=== PATIENT | male | born 1960 | race African-American/Black ===

== ENCOUNTER 2018-12-18 07:43 | Emergency (ER) | payer OTHER ==
--- OUTSIDE RECORDS SUMMARY | 2018-12-18 07:46 | XMS REPORT | Clinical Summary ---
:1960 Author Organization [facility] Address [address] [place] [address] Care Team Providers Name Role Phone Asked, No Pcp Primary Care Provider Unavailable Allergies No Known Allergies Medications Medication Sig Dispensed Refills Start Date End Date Status QUEtiapine XR Take 400 mg by 0 Active (SEROquel XR) 400 MG mouth nightly. 24 hr tablet sertraline (ZOLOFT) Take 100 mg by 0 Active 100 MG tablet mouth daily. amLODIPine (NORVASC) Take 1 tablet 30 tablet 11 09/18/2018 10/18/2018 10 mg tablet (10 mg total) by mouth daily for 30 days. Active Problems Problem Noted Date Acute renal failure 09/12/2018 Encounters Date Type Specialty Care Team Description 09/15/2018 Intake Access N/A 09/12/2018 - Hospital Encounter General Internal Michael Herrmann Acute renal failure, unspecified acute renal failure type (HCC) (Primary Dx); 09/17/2018 Curry Castillo MD Suicidal ideation; Cole Locke, Cocaine abuse (HCC) Ciro Salter MD 09/12/2018 Intake Access N/A after 12/17/2017 Social History Tobacco Use Types Packs/Day Years Used Date Current Every Day Smoker 0.5 Smokeless Tobacco: Never Used Tobacco Cessation: Ready to Quit: No; Counseling Given: Yes Sex Assigned at Date Recorded Not on file Job Start Date Occupation Industry Not on file Not on file Not on file Travel History Travel Start Travel End No recent travel history available. Last Filed Vital Signs Vital Sign Reading Time Taken Blood Pressure 158/84 09/17/2018 3:43 PM CDT Pulse 60 09/17/2018 3:43 PM CDT Temperature 35.9 C (96.7 F) 09/17/2018 3:43 PM CDT Respiratory Rate 18 09/17/2018 3:43 PM CDT Oxygen Saturation 96% 09/17/2018 3:43 PM CDT Inhaled Oxygen Concentration - - Weight 125 kg (275 lb 3.2 oz) 09/17/2018 4:53 AM CDT Height 188 cm (6' 2") 09/12/2018 9:41 PM [employer]LASTICS WORKER Body Mass Index 35.33 09/12/2018 9:41 PM PLASTICS WORKER Plan of Treatment Health Maintenance Due Date Last Done Comments COLONOSCOPY SCREENING 2009 SHINGLES VACCINES (#1) 2009 INFLUENZA VACCINE 02/04/2019 Procedures Procedure Name Priority Date/Time Associated Comments Diagnosis ESTIMATED GFR Routine 09/17/2018 4:40 Results for this AM CDT procedure are in the results section. BASIC METABOLIC PANEL Routine 09/17/2018 4:40 Results for this AM CDT procedure are in the results section. ESTIMATED GFR Routine 09/15/2018 4:54 Results for this AM CDT procedure are in the results section. IONIZED CALCIUM Routine 09/15/2018 4:54 Results for this AM CDT procedure are in the results section. PHOSPHORUS LEVEL Routine 09/15/2018 4:54 Results for this AM CDT procedure are in the results section. MAGNESIUM LEVEL Routine 09/15/2018 4:54 Results for this AM CDT procedure are in the results section. HC COMPLETE BLD COUNT Routine 09/15/2018 4:54 Results for this W/AUTO DIFF AM CDT procedure are in the results section. COMPREHENSIVE METABOLIC Routine 09/15/2018 4:54 Results for this PANEL AM CDT procedure are in the results section. ESTIMATED GFR Routine 09/14/2018 6:26 Results for this AM CDT procedure are in the results section. IONIZED CALCIUM Routine 09/14/2018 6:26 Results for this AM CDT procedure are in the results section. PHOSPHORUS LEVEL Routine 09/14/2018 6:26 Results for this AM CDT procedure are in the results section. MAGNESIUM LEVEL Routine 09/14/2018 6:26 Results for this AM CDT procedure are in the results section. HC COMPLETE BLD COUNT Routine 09/14/2018 6:26 Results for this W/AUTO DIFF AM CDT procedure are in the results section. COMPREHENSIVE METABOLIC Routine 09/14/2018 6:26 Results for this PANEL AM CDT procedure are in the results section. CREATININE LEVEL, Routine 09/13/2018 4:21 Results for this URINE, RANDOM PM CDT procedure are in the results section. PROTEIN, URINE, RANDOM Routine 09/13/2018 4:21 Results for this PM CDT procedure are in the results section. URIC ACID LEVEL Routine 09/13/2018 4:00 Results for this PM CDT procedure are in the results section. CREATINE KINASE, TOTAL Routine 09/13/2018 4:00 Results for this (CPK) PM CDT procedure are in the results section. PARATHYROID HORMONE Routine 09/13/2018 4:00 Results for this PM CDT procedure are in the results section. ESTIMATED GFR Routine 09/13/2018 3:35 Results for this AM CDT procedure are in the results section. B NATRIURETIC PEPTIDE Routine 09/13/2018 3:35 Results for this AM CDT procedure are in the results section. HEMOGLOBIN A1C Routine 09/13/2018 3:35 Results for this AM CDT procedure are in the results section. IONIZED CALCIUM Routine 09/13/2018 3:35 Results for this AM CDT procedure are in the results section. PHOSPHORUS LEVEL Routine 09/13/2018 3:35 Results for this AM CDT procedure are in the results section. MAGNESIUM LEVEL Routine 09/13/2018 3:35 Results for this AM CDT procedure are in the results section. HC COMPLETE BLD COUNT Routine 09/13/2018 3:35 Results for this W/AUTO DIFF AM CDT procedure are in the results section. COMPREHENSIVE METABOLIC Routine 09/13/2018 3:35 Results for this PANEL AM CDT procedure are in the results section. US RENAL STAT 09/13/2018 1:25 Results for this AM [employer]LAST[employer] WORKER procedure are in the results section. URINE DRUGS OF ABUSE STAT 09/12/2018 4:07 Results for this SCREEN PM PLASTICS WORKER procedure are in the results section. URINALYSIS SCREEN AND STAT 09/12/2018 4:07 Results for this MICROSCOPY, WITH REFLEX PM PLASTICS WORKER procedure are in TO CULTURE the results section. ESTIMATED GFR STAT 09/12/2018 3:42 Results for this PM [employer]LAST[employer] WORKER procedure are in the results section. ACETAMINOPHEN LEVEL STAT 09/12/2018 3:42 Results for this PM PLAST[employer] WORKER procedure are in the results section. ALCOHOL LEVEL, BLOOD STAT 09/12/2018 3:42 Results for this PM [employer] WORKER procedure are in the results section. HC COMPLETE BLD COUNT STAT 09/12/2018 3:42 Results for this W/AUTO DIFF PM PLASTICS WORKER procedure are in the results section. THYROID STIMULATING STAT 09/12/2018 3:42 Results for this HORMONE PM [employer] WORKER procedure are in the results section. T4, FREE STAT 09/12/2018 3:42 Results for this PM [employer] WORKER procedure are in the results section. COMPREHENSIVE METABOLIC STAT 09/12/2018 3:42 Results for this PANEL PM [employer] WORKER procedure are in the results section. URINE CULTURE STAT 09/12/2018 3:26 Results for this PM PLASTICS WORKER procedure are in the results section. GRAM STAIN STAT 09/12/2018 3:26 Results for this PM PLASTICS WORKER procedure are in the results section. ECG 12-LEAD STAT 09/12/2018 2:10 Results for this PM PLASTICS WORKER procedure are in the results section. ECG ED PRELIMINARY Routine 09/12/2018 1:34 Results for this INTERPRETATION PM PLASTICS WORKER procedure are in the results section. after 12/17/2017 Results Estimated GFR (09/17/2018 4:40 AM CDT)Only the most recent of5 resultswithin the time period is included. Pathologist [facility] Estimated GFR 75 mL/min/1.73 [facility] Comment: m2 [place] CatergoryUnitsInterpretation HOSPITAL G1 >=90 Normal or high G2 60-89Mildly decreased [id number] to moderately decreased [id number] to severely decreased G4 15-29Severely decreased G5 <15Kidney failure The eGFR was calculated using the Chronic Kidney Disease Epidemiology Collaboration (CKD-EPI) equation. Interpretation is based on recommendations of the National Kidney Foundation-Kidney Disease Outcomes Quality Initiative (NKF-KDOQI) published in 2014. Specimen Plasma specimen Performing Organization Address City/State/Zipcode Phone Number [facility] DEPARTMENT OF PATHOLOGY [address] [place] [address] AND GENOMIC MEDICINE [facility] [address] [place] [address] HOSPITAL Basic metabolic panel (09/17/2018 4:40 AM CDT) Sodium 138 135 - 148 mEq/L [facility] Potassium 4.3 3.5 - 5.0 mEq/L [facility] Chloride 103 98 - 112 mEq/L [facility] CO2 28 24 - 31 mEq/L [facility] Anion gap 7@ANIO 7 - 15 mEq/L [facility] BUN 13 6 - 20 mg/dL [facility] Creatinine 1.22 (H) 0.70 - 1.20 mg/dL [facility] Glucose 89 65 - 99 mg/dL [facility] Calcium 9.2 8.3 - 10.2 mg/dL [facility] Specimen Plasma specimen Performing Organization Address City/[facility]/Zipcode Phone Number [facility] DEPARTMENT OF PATHOLOGY [address] [place] [address] AND [facility] MEDICINE [facility] [address] [place] [address] HOSPITAL CBC with platelet and differential (09/15/2018 4:54 AM CDT)Only the most recent of4 resultswithin the time period is included. WBC 5.8 4.5 - 11.0 k/uL [facility] RBC 5.01 4.40 - 6.00 [facility] m/uL [facility] HGB 14.0 14.0 - 18.0 [facility] g/dL [facility] HCT 44.6 41.0 - 51.0 % [facility] MCV 89.0 82.0 - 100.0 fL [facility] MCH 27.9 27.0 - 34.0 pg [facility] MCHC 31.4 31.0 - 37.0 [facility] RDW - SD 45.8 37.0 - 55.0 fL [facility] MPV 11.6 (H) 6.9 - 11.0 fL [facility] Platelet count 213 150 - 400 K/uL [facility] Nucleated RBC 0.00 /100 WBC [facility] Neutrophils 38.2 (L) 39.0 - 69.0 % [facility] Lymphocytes 42.3 25.0 - 45.0 % [facility] Monocytes 12.7 (H) 0.0 - 10.0 % [facility] Eosinophils 4.8 0.0 - 5.0 % [facility] Basophils 1.7 (H) 0.0 - 1.0 % [facility] Immature granulocytes 0.3 0.0 - 1.0 % [facility] Specimen Blood Performing Organization Address City/[facility]/Zipcode Phone Number [facility] DEPARTMENT OF PATHOLOGY [address] [place] [address] [place] [address] HOSPITAL Phosphorus level (09/15/2018 4:54 AM CDT)Only the most recent of3 resultswithin the time period is included. Phosphorus 2.9 2.4 - 4.5 mg/dL [facility] Specimen Plasma specimen Performing Organization Address [facility] Phone Number [facility] DEPARTMENT OF PATHOLOGY [address] [place] [address] [place] [address] HOSPITAL Magnesium level (09/15/2018 4:54 AM CDT)Only the most recent of3 resultswithin the time period is included. Magnesium 2.0 1.6 - 2.6 mg/dL [facility] Specimen Plasma specimen Performing Organization Address [facility] Phone Number [facility] DEPARTMENT OF PATHOLOGY [address] [place] [address] [place] [address] HOSPITAL Ionized calcium (09/15/2018 4:54 AM CDT)Only the most recent of3 resultswithin the time period is included. pH 7.38 [facility] Ionized calcium 1.09 (L) 1.11 - 1.32 [facility] mmol/L [facility] Specimen Plasma specimen Performing Organization Address City/[facility] Cent[facility] Phone Number [facility] DEPARTMENT OF PATHOLOGY [address] [place] [address] [place] [address] HOSPITAL Comprehensive metabolic panel (09/15/2018 4:54 AM CDT)Only the most recent of4 resultswithin the time period is included. Sodium 141 135 - 148 mEq/L [facility] Potassium 4.6 3.5 - 5.0 mEq/L [facility] Chloride 108 98 - 112 mEq/L [facility] CO2 23 (L) 24 - 31 mEq/L [facility] Anion gap 10@ANIO 7 - 15 mEq/L [facility] BUN 11 6 - 20 mg/dL [facility] Creatinine 1.28 (H) 0.70 - 1.20 [facility] mg/dL [facility] Glucose 91 65 - 99 mg/dL [facility] Calcium 8.7 8.3 - 10.2 [facility] mg/dL [facility] Protein 7.2 6.3 - 8.3 g/dL [facility] Albumin 3.0 (L) 3.5 - 5.0 g/dL [facility] A/G ratio 0.7 0.7 - 3.8 [facility] Alkaline phosphatase 59 40 - 129 U/L [facility] AST 59 (H) 10 - 50 U/L [facility] ALT 63 (H) 5 - 50 U/L [facility] Total bilirubin <0.2 0.2 - 1.2 mg/dL [facility] Specimen Plasma specimen Performing Organization Address City/[facility] Cent[facility]ode Phone Number [facility] DEPARTMENT OF PATHOLOGY [address] [place] [address] AND [facility] [place] [address] HOSPITAL Protein, urine, random (09/13/2018 4:21 PM CDT) Total volume, urine 70 mL [facility] Urine protein 192 mg/dL [facility] Urine protein excretion 134 mg/vol [facility] Specimen Urine Performing Organization Address City/[facility] Cent[facility]ode Phone Number [facility] DEPARTMENT OF PATHOLOGY [address] [place] [address] AND GENOMIC MEDICINE [address] Creatinine level, urine, random (09/13/2018 4:21 PM CDT) Total volume, urine 70 mL [facility] Urine creatinine 296 mg/dL [facility] Urine creatinine excretion 207 mg/vol [facility] Specimen Urine Performing Organization Address City/[facility] Centercode Phone Number [facility] DEPARTMENT OF PATHOLOGY [address] [place], [place] [id number] AND [address] Uric acid level (09/13/2018 4:00 PM CDT) Uric acid 8.0 (H) 3.4 - 7.0 mg/dL [facility] Specimen Plasma specimen Performing Organization Address City/[facility]/Zipcode Phone Number [facility] DEPARTMENT OF PATHOLOGY [address] [place] [address] Parathyroid hormone (09/13/2018 4:00 PM CDT) PTH 51 15 - 65 pg/mL [facility] Specimen Blood Performing Organization Address City/State/Zipcode Phone Number [facility] DEPARTMENT OF PATHOLOGY [address] [place] [address] Creatine kinase, total (CPK) (09/13/2018 4:00 PM CDT) Creatine kinase 535 (H) 39 - 308 U/L [facility] Specimen Plasma specimen Performing Organization Address City/[facility]/Zipcode Phone Number [facility] DEPARTMENT OF PATHOLOGY [address] [place] [address] B natriuretic peptide (09/13/2018 3:35 AM CDT) BNP 6 0 - 100 pg/mL [facility] Specimen Blood Performing Organization Address City/State/Zipcode Phone Number [facility] DEPARTMENT OF PATHOLOGY [address] [place] [address] Hemoglobin A1c (09/13/2018 3:35 AM CDT) Hemoglobin A1C 6.6 (H) 4.0 - 6.0 % [facility] Comment: [facility] Less than 6% - Goal of therapy for Type II Diabetes Less than 7%-Goal of therapy for Type I Diabetes Less than 8%-Acceptable control for Type I or Type II Diabetes Greater than 8%-Unacceptable control; action indicated. ([id number]) Specimen Blood Performing Organization Address City/[facility]/Zipcode Phone Number [facility] DEPARTMENT OF PATHOLOGY [address] [place] [address] AND GENOMIC MEDICINE [facility] [address] [place] [address] HOSPITAL Renal (09/13/2018 1:25 AM PLASTICS WORKER) Specimen Narrative Performed At EXAMINATION:[facility] CL[facility]ICAL HISTORY:Renal failureacute (kidney injury) COMPARISON:None. IMPRESSION: Exam is limited due to patient's body habitus. The right kidney measures 11.5 x 5.2 x 7 cm. The cortex measures 1.4 cm. No masses, stones, or hydronephrosis. Left kidney measures 10.9 x 4.8 x 6.1 cm. The cortex measures 1.2 cm. No masses, stones, or hydronephrosis. The bladder is unremarkable. [facility]-[id number] Procedure Note Hm Interface, Radiology Results Incoming - 09/13/2018 1:30 AM PLASTICS WORKER EXAMINATION: US RENAL CLINICAL HISTORY: Renal failure acute (kidney injury) COMPARISON: None. IMPRESSION: Exam is limited due to patient's body habitus. The right kidney measures 11.5 x 5.2 x 7 cm. The cortex measures 1.4 cm. No masses, stones, or hydronephrosis. Left kidney measures 10.9 x 4.8 x 6.1 cm. The cortex measures 1.2 cm. No masses , stones, or hydronephrosis. The bladder is unremarkable. [facility]-[id number] Performing Organization Address City/[facility]/Zipcode Phone Number [facility] [address] [place] [address] Urinalysis screen and microscopy, with reflex to culture (09/12/2018 4:07 PM PLASTICS WORKER) Specimen site Clean catch [facility] Color, UA Brooke [facility] Appearance, UA Cloudy [facility] Specific gravity, UA 1.026 1.001 - 1.030 [facility] pH, UA 5.0 5.0 - 9.0 [facility] Protein, UA 2+ (A) Negative [facility] Glucose, UA Negative Negative [facility] Ketones, UA Negative Negative [facility] Bilirubin, UA Negative Negative [facility] Blood, UA Negative Negative [facility] Nitrite, UA Negative Negative [facility] Urobilinogen, UA <2.0 <2.0 E.U./dL [facility] Leukocyte esterase, Negative Negative [facility] Epithelial cells, UA 1 /HPF [facility] Round epithelial <1 0 - 5 /HPF [facility] cells, UA [facility] WBC, UA 12 (H) 0 - 1 /HPF [facility] RBC, UA 5 0 - 5 /HPF [facility] Bacteria, UA None seen None seen [facility] Yeast, UA None seen [facility] Yeast with None seen [facility] pseudohyphae, UA [facility] Specimen Urine Performing Organization Address City/State/Zipcode Phone Number [facility] DEPARTMENT OF PATHOLOGY [address] [place] [address] AND [facility]OMIC MEDICINE [facility] [address] Urine drugs of abuse screen (09/12/2018 4:07 PM PLASTICS WORKER) Amphetamine screen, Negative [place] urine [facility] Barbiturate screen, Negative [place] urine [facility] Benzodiazepine Negative [place] screen, urine [facility] Cannabinoid screen, Negative [place] urine [facility] Cocaine screen, urine Positive (A) [facility] Methadone metabolite Negative [place] (EDDP), urine [facility] Opiates screen, urine Negative [facility] Phencyclidine screen, Negative [place] urine [facility] Tricyclic screen, Negative [place] urine Comment: [facility] Drug screen minimum concentration of [facility] Khhiwaqrekfg5549 ng/mL Barbiturates 200 ng/mL Vaikwbhugpeuelg930 ng/mL Pvicccv415 ng/mL Oipahqefa452 ng/mL Rbhoadx661 ng/mL Phencyclidine 25 ng/mL Hauiqtgjlhiq46 ng/mL Zmhqxaamwh2236 ng/mL Results are from screening tests and should only be used for medical evaluation. Drug testing for legal purposes requires definitive (or confirmatory) testing methods, which are available upon request. Contact the laboratory if definitive testing is required. Specimen Urine Performing Organization Address City/[facility]/Zipcode Phone Number [facility] DEPARTMENT OF PATHOLOGY [address] [place] [address] Thyroid stimulating hormone (09/12/2018 3:42 PM PLASTICS WORKER) TSH 2.07 0.27 - 4.20 uIU/mL [facility] Specimen Plasma specimen Performing Organization Address City/[facility]/Zipcode Phone Number [facility] DEPARTMENT OF PATHOLOGY [address] [place] [address] T4, free (09/12/2018 3:42 PM PLASTICS WORKER) T4, free 0.9 0.9 - 1.7 ng/dL [facility] Specimen Plasma specimen Performing Organization Address City/[facility] Phone Number [facility] DEPARTMENT OF PATHOLOGY [address] [place] [address] Alcohol level, blood (09/12/2018 3:42 PM PLASTICS WORKER) Alcohol None Detected mg/dL VIGNESH URRUTIA Comment: [place] Normal None Detected [facility] Legal Intoxication in [place]80 mg/dL (0.08%) - Whole Blood Toxic Czioubqedrecg975 mg/dL (0.2%) Potentially Fwdma303 - 500 mg/dL (0.35 - 0.5%) Alcohol percent None Detected % [facility] Specimen Plasma specimen Performing Organization Address City/[facility]/Zipcode Phone Number [facility] DEPARTMENT OF PATHOLOGY [address] [place] [address] [place] [address] HOSPITAL Acetaminophen level (09/12/2018 3:42 PM PLASTICS WORKER) Acetaminophen level <8.3 10.0 - 30.0 [facility] Comment: ug/mL [place] Therapeutic 10-30 ug/mL [facility] Possible Toxicity 150-200 ug/mL Probable Toxicity >200 ug/mL Specimen Plasma specimen Performing Organization Address City/[facility]/Zipcode Phone Number [facility] DEPARTMENT OF PATHOLOGY [address] [place] [address] AND [facility] [address] [place] [address] HOSPITAL Gram stain (09/12/2018 3:26 PM PLASTICS WORKER) Gram stain result No WBC's or organisms seen. [facility] Comment: HOSPITAL Specimen Information Specimen Source: Urine Specimen Site: Clean catch Specimen Urine Performing Organization Address City/[facility]/Zipcode Phone Number [facility] DEPARTMENT OF PATHOLOGY AND [address] [place] [address] [place] [id number] Urine culture (09/12/2018 3:26 PM PLASTICS WORKER) Urine culture Mixed juliana <=10-3 col/cc [facility] isolate Comment: HOSPITAL Specimen Information Specimen Source: Urine Specimen Site: Clean catch Specimen Urine Performing Organization Address [facility] Centercode Phone Number [facility] DEPARTMENT OF PATHOLOGY AND [address] [place] [address] [address] ECG 12 lead (09/12/2018 2:10 PM PLASTICS WORKER) Ventricular rate 80 [facility] Atrial rate 80 [facility] [place] interval 134 [facility] QRSD interval 100 [facility] QT interval 432 [facility] QTC interval 498 [facility] P axis 1 51 [facility] QRS axis 1 5 [facility] T wave axis 7 [facility] EKG impression Normal sinus [facility] rhythm-Left ventricular hypertrophy-Nonspecific T wave abnormality-In automated comparison with ECG of 21-OCT-2012 12:58,-QT has lengthened-Electronical ly Signed By Barry Noonan MD (2024) on 09/12/2018 6:21:15 PM Specimen Narrative Performed At Performing Organization Address City/[facility] Centercode Phone Number [facility] M[address] [place] [address] ECG ED Preliminary Interpretation - Not an Order (09/12/2018 1:34 PM PLASTICS WORKER) Narrative Performed At Fabiola Montes NP 09/12/20188:19 PM ECG ED Preliminary Interpretation - Not an Order Performed by: Fabiola Montes NP Authorized by: Michael Herrmann MD ECG reviewed by ED Physician in the absence of a manager council: yes Interpretation: Interpretation: normal Rate: ECG rate:80 ECG rate assessment: normal Rhythm: Rhythm: sinus rhythm Ectopy: Ectopy: none QRS: QRS axis:Normal QRS intervals:Normal Conduction: Conduction: normal ST segments: ST segments:Normal T waves: T waves: non-specific after 12/17/2017 Advance Directives Patient has advance care planning documents on file. For more information, please contact:Vignesh [id number] [place] [address]
[2018-12-18 08:26] LABS: Absolute Lymphocytes (CBC) 3.2 K/uL (0.7-4.9); Absolute Neutrophil 6.9 K/uL (1.8-8.0); Basophils % 1.5 % (0-1.3); Eosinophils % 2.4 % (0-4.4); MPV 9.1 fL (7.6-11.3); Monocytes % 8.5 % (3.3-12.3); RBC Red Blood Cell Count 4.85 M/uL (4.33-5.43)
[2018-12-18 08:37] LABS: Protime INR 1.2
[2018-12-18 09:08] LABS: ALT/SGPT 26 U/L (12-78); AST/SGOT 22 U/L (15-37); Albumin 3.8 g/dL (3.4-5.0); Alkaline Phosphatase 70 U/L (45-117); BUN Blood Urea Nitrogen 19 mg/dL (7-18); Bicarbonate 28 mmol/L (21-32); Bilirubin Direct 0.2 mg/dL (0-0.2); Bilirubin Total 1.1 mg/dL (0.2-1.0); Glucose Level 114 mg/dL (74-106); Potassium 3.5 mmol/L (3.5-5.1); Protein, Total 9.1 g/dL (6.4-8.2); Sodium Level 138 mmol/L (136-145)
[2018-12-18 10:29] LABS: Barbiturates NEGATIVE (NEGATIVE); Benzodiazepines NEGATIVE (NEGATIVE); Cocaine POSITIVE (NEGATIVE); METHAMPHETAM NEGATIVE (NEGATIVE); Methadone NEGATIVE (NEGATIVE); Opiates NEGATIVE (NEGATIVE); Phencyclidine NEGATIVE (NEGATIVE); THC Cannibis NEGATIVE (NEGATIVE)
[2018-12-18 11:59] LABS: Urine Blood NEGATIVE (NEG); Urine Glucose NEGATIVE (NEG); Urine Protein 2+ (NEG); Urine Specific Gravity >1.030 (1.005-1.030)
--- NOTE | 2018-12-18 13:31 | EDPHYS ---
Physician Documentation [facility] Name: Russ Hatfield Jr Age: 58 yrs Sex: Male : 1960 Arrival Date: 12/18/2018 Time: 07:47 Bed 17 Private MD: ED Physician Baljinder Swanson HPI: 12/18 08:11 This 58 yrs old Black Male presents to ER via Ambulatory with complaints of Suicidal kdr Ideation. 08:11 The patient presents to the emergency department with suicide ideation, and the patient kdr has a plan, Walk into traffic. Onset: The symptoms/episode began/occurred yesterday. Past psychiatric history: Prior diagnosis: depression, schizophrenia, Psychiatric medications include: none, the patient has had a prior suicide gesture, where the patient cut wrists, the patient has a previous inpatient psychiatric history, the patient's last psychiatric treatment was. Associated signs and symptoms: The patient has no apparent associated signs or symptoms. Severity of symptoms: At their worst the symptoms were mild moderate just prior to arrival, in the emergency department the symptoms are unchanged. The patient has experienced similar episodes in the past, chronically. The patient has not recently seen a physician. 08:11 Has used cocaine in the last 24 - 48 hours. kdr Historical: - Allergies: 08:01 No Known Allergies; em - Home Meds: 08:01 Seroquel Oral [Active]; Depakote Oral [Active]; Zoloft Oral [Active]; Metoprolol em Tartrate Oral [Active]; Metformin Oral [Active]; - PMHx: 08:01 Schizophrenia; Hypertension; Diabetes - NIDDM; em - PSHx: 08:01 None; em - Immunization history:: Adult Immunizations up to date. - Social history:: Smoking status: Patient uses tobacco products, smokes one pack cigarettes per day. - Ebola Screening: : Patient negative for fever greater than or equal to 101.5 degrees Fahrenheit, and additional compatible Ebola Virus Disease symptoms Patient denies exposure to infectious person Patient denies travel to an Ebola-affected area in the 21 days before illness onset No symptoms or risks identified at this time. ROS: 08:11 Constitutional: Negative for fever, chills, and weight loss, Eyes: Negative for injury, kdr pain, redness, and discharge, ENT: Negative for injury, pain, and discharge, Neck: Negative for injury, pain, and swelling, Cardiovascular: Negative for chest pain, palpitations, and edema, Respiratory: Negative for shortness of breath, cough, wheezing, and pleuritic chest pain, Abdomen/GI: Negative for abdominal pain, nausea, vomiting, diarrhea, and constipation, Back: Negative for injury and pain, : Negative for injury, bleeding, discharge, and swelling, MS/Extremity: Negative for injury and deformity, Skin: Negative for injury, rash, and discoloration, Neuro: Negative for headache, weakness, numbness, tingling, and seizure activity. Allergy/Immunology: Negative for hives, rash, and allergies, Endocrine: Negative for neck swelling, polydipsia, polyuria, polyphagia, and marked weight changes, Hematologic/Lymphatic: Negative for swollen nodes, abnormal bleeding, and unusual bruising. 08:11 Psych: Positive for depression, suicidal ideation, Negative for alcohol dependence, auditory hallucinations, visual hallucinations, homicidal ideation, suicide gesture. Exam: 08:11 Constitutional: This is a well developed, well nourished patient who is awake, alert, kdr and in no acute distress. Head/Face: Normocephalic, atraumatic. Eyes: Pupils equal round and reactive to light, extra-ocular motions intact. Lids and lashes normal. Conjunctiva and sclera are non-icteric and not injected. Cornea within normal limits. Periorbital areas with no swelling, redness, or edema. Neck: Trachea midline, no thyromegaly or masses palpated, and no cervical lymphadenopathy. Supple, full range of motion without nuchal rigidity, or vertebral point tenderness. No Meningismus. Chest/axilla: Normal chest wall appearance and motion. Nontender with no deformity. No lesions are appreciated. Cardiovascular: Regular rate and rhythm with a normal S1 and S2. No gallops, murmurs, or rubs. Normal PMI, no JVD. No pulse deficits. Respiratory: Lungs have equal breath sounds bilaterally, clear to auscultation and percussion. No rales, rhonchi or wheezes noted. No increased work of breathing, no retractions or nasal flaring. Abdomen/GI: Soft, non-tender, with normal bowel sounds. No distension or tympany. No guarding or rebound. No evidence of tenderness throughout. Back: No spinal tenderness. No costovertebral tenderness. Full range of motion. Skin: Warm, dry with normal turgor. Normal color with no rashes, no lesions, and no evidence of cellulitis. MS/ Extremity: Pulses equal, no cyanosis. Neurovascular intact. Full, normal range of motion. Neuro: Awake and alert, GCS 15, oriented to person, place, time, and situation. Cranial nerves II-XII grossly intact. Motor strength 5/5 in all extremities. Sensory grossly intact. Cerebellar exam normal. Normal gait. 08:11 Psych: Behavior/mood is pleasant, cooperative, suicidal, Affect is calm, flat, Oriented to person, place, time, Patient having thoughts of suicide. Plan for suicide is Waling into traffic Judgement / Insight is impaired. Memory is normal. Delusions/hallucinations are not present. Vital Signs: 08:01 BP 144 / 100; Pulse 73; Resp 18; Temp 98.3(O); Pulse Ox 95% on R/A; Weight 127.01 kg; em Height 6 ft. 2 in. (187.96 cm); 10:24 BP 131 / 84; Pulse 75; Resp 18; Temp 97.6(TE); Pulse Ox 97% on R/A; mh5 08:01 Body Mass Index 35.95 (127.01 kg, 187.96 cm) em MDM: 13:31 Patient medically screened. kdr 14:21 Data reviewed: vital signs, nurses notes, lab test result(s). Data reviewed:. kdr Counseling: I had a detailed discussion with the patient and/or guardian regarding: the historical points, exam findings, and any diagnostic results supporting the discharge/admit diagnosis, lab results, the need for outpatient follow up. 12/18 08:00 Order name: Acetaminophen; Complete Time: : [facility] 12/18 08:00 Order name: Basic Metabolic Panel; Complete Time: : [facility] 12/18 08:00 Order name: CBC with Diff; Complete Time: : kdr 12/18 08:00 Order name: ETOH Level; Complete Time: 13:22 kdr 12/18 08:00 Order name: Hepatic Function; Complete Time: : kdr 12/18 08:00 Order name: PT-INR; Complete Time: 09: [facility] 12/18 08:00 Order name: Ptt, Activated; Complete Time: : [facility] 12/18 08:00 Order name: Salicylate; Complete Time: 09:33 kdr 12/18 08:00 Order name: Urine Drug Screen; Complete Time: 10:34 kdr 12/18 08:00 Order name: Labs collected and sent; Complete Time: 08:22 kdr 12/18 08:05 Order name: Urine Dipstick--Ancillary (enter results); Complete Time: 13:22 ms 12/18 08:22 Order name: Diet Regular; Complete Time: 08:22 [facility] 12/18 08:25 Order name: Diet Ada 2000 Trevor; Complete Time: 08:26 5 12/18 11:08 Order name: Diet Ada 2000 Trevor; Complete Time: 11:11 5 12/18 08:00 Order name: Urine Dipstick-Ancillary (obtain specimen); Complete Time: 08:03 kdr Administered Medications: No medications were administered Disposition: 12/18/18 13:31 Transfer ordered to Psych Facility. Diagnosis is Suicidal ideations. - Reason for transfer: Higher level of care. - Accepting physician is Dr. Amador. - Condition is Fair. - Problem is an acute exacerbation. - Symptoms are unchanged. Signatures: Dispatcher [employer] Baljinder Nieves MD MD kdr Daryn Cueva, MARKETING SERVICES REP MARKETING SERVICES REP em Corrections: (The following items were deleted from the chart) 14:21 13:31 12/18/2018 13:31 Transfer ordered to Psych Facility. Diagnosis is Suicidal em ideations. Reason for transfer: Higher level of care. Accepting physician is Dr. Amador. Condition is Fair. Problem is an acute exacerbation. Symptoms are unchanged. kdr
--- NOTE | 2018-12-18 13:31 | ER ---
Nurse's Notes [facility] Name: Russ Hatfield Jr Age: 58 yrs Sex: Male : 1960 Arrival Date: 12/18/2018 Time: 07:47 Bed 17 Private MD: Diagnosis: Suicidal ideations Presentation: 12/18 07:55 Presenting complaint: Patient states: suicidal since last night, has plan to run into em traffic, "just wants to end it" admits to cocaine use, denies alcohol use. Transition of care: patient was not received from another setting of care. Onset of symptoms was December 17, 2018. Risk Assessment: Do you want to hurt yourself or someone else? Patient reports desire/thoughts of hurting themselves or someone else. Provider notified. Initial Sepsis Screen: Does the patient meet any 2 criteria? No. Patient's initial sepsis screen is negative. Does the patient have a suspected source of infection? No. Patient's initial sepsis screen is negative. Care prior to arrival: None. 07:55 Method Of Arrival: Ambulatory em 07:56 Acuity: GABRIELLE 2 hb Triage Assessment: 08:01 General: Appears in no apparent distress. comfortable, Behavior is calm, cooperative. em Pain: Complains of pain in back. Historical: - Allergies: 08:01 No Known Allergies; em - Home Meds: 08:01 Seroquel Oral [Active]; Depakote Oral [Active]; Zoloft Oral [Active]; Metoprolol em Tartrate Oral [Active]; Metformin Oral [Active]; - PMHx: 08:01 Schizophrenia; Hypertension; Diabetes - NIDDM; em - PSHx: 08:01 None; em - Immunization history:: Adult Immunizations up to date. - Social history:: Smoking status: Patient uses tobacco products, smokes one pack cigarettes per day. - Ebola Screening: : Patient negative for fever greater than or equal to 101.5 degrees Fahrenheit, and additional compatible Ebola Virus Disease symptoms Patient denies exposure to infectious person Patient denies travel to an Ebola-affected area in the 21 days before illness onset No symptoms or risks identified at this time. Screenin:03 Abuse screen: Denies threats or abuse. Nutritional screening: No deficits noted. em Tuberculosis screening: No symptoms or risk factors identified. Fall Risk None identified. Assessment: 08:01 General: Appears in no apparent distress. comfortable, Behavior is calm, cooperative. em Pain: Complains of pain in back Pain currently is 4 out of 10 on a pain scale. Neuro: Level of Consciousness is awake, alert, obeys commands, Oriented to person, place, time, situation. Cardiovascular: Capillary refill < 3 seconds Patient's skin is warm and dry. Respiratory: Airway is patent Respiratory effort is even, unlabored, Respiratory pattern is regular, symmetrical. GI: Patient currently denies nausea, vomiting. : Denies burning with urination. Derm: Skin is intact, is healthy with good turgor, Skin is pink, warm \\T\\ dry. Musculoskeletal: Capillary refill < 3 seconds, Range of motion: intact in all extremities. 08:26 Reassessment: I agree with the assessment made by Daryn CARRILLO. 09:33 Reassessment: Patient appears in no apparent distress at this time. Patient and/or em family updated on plan of care and expected duration. Pain level reassessed. Patient is alert, oriented x 3, equal unlabored respirations, skin warm/dry/pink. ate 100% of breakfast tray, tolerated well. 10:30 Reassessment: Patient appears in no apparent distress at this time. Patient and/or em family updated on plan of care and expected duration. Pain level reassessed. Patient is alert, oriented x 3, equal unlabored respirations, skin warm/dry/pink. 11:30 Reassessment: Patient appears in no apparent distress at this time. Patient and/or em family updated on plan of care and expected duration. Pain level reassessed. Patient is alert, oriented x 3, equal unlabored respirations, skin warm/dry/pink. resting comfortably with eyes closed, pending facility to accept. 13:00 Reassessment: report called to Sabra Maldonado RN at [facility], awaiting the Doctor to Doctor report at this time. 13:16 Reassessment: report given to AKIN Santiago at [facility], pending doc to doc. em 13:19 Reassessment: report given to AKIN Hartmann at [facility], pending doc to doc, em number to reach Dr. Krueger at [phone]. 14:20 Reassessment: report given to EMS, will transport to facility. em Psych: 08:05 Subjective: Patient's mood is sad, Delusions are denied, Hallucinations are denied em Having thoughts of suicide. Plan for suicide is run into traffic. Objective: Patient is cooperative, Speech is normal, Affect is appropriate. Interventions: Removed personal items and placed in bag. Patient placed in hospital gown. Searched person for dangerous items. Urine collected and sent for urine drug test. Belonging list filled out. Suicide Risk Assessment: Sad Person Scale: Sex of patient: Male: Score 1 point. Age of patient: Score 0 point if patient falls outside of specified age parameters. Depression: Score 1 point if signs of depression are present. Previous Attempt: Score 1 point if patient has previously attempted suicide. Substance Abuse: Score 1 point if patient abuses alcohol or drugs. Rational Thinking: Score 0 point if patient has rational thinking. Social Support: Score 0 if social support is present/available. Organized Plan: Score 1 point if patient had a plan in place. Relationship: Score 1 point if patient is , , , or for a single male Chronic Sickness: Score 0 point if patient does not have a chronic illness, debilitating, or severe disorder. Safety Checks: Personal items have been removed. Door is open. No visitors are present at this time. Patient uses cocaine, cocaine. Commitment: Patient will be a voluntary commitment. Vital Signs: 08:01 BP 144 / 100; Pulse 73; Resp 18; Temp 98.3(O); Pulse Ox 95% on R/A; Weight 127.01 kg; em Height 6 ft. 2 in. (187.96 cm); 10:24 BP 131 / 84; Pulse 75; Resp 18; Temp 97.6(TE); Pulse Ox 97% on R/A; mh5 08:01 Body Mass Index 35.95 (127.01 kg, 187.96 cm) em ED Course: 07:47 Patient arrived in ED. mr 07:49 Baljinder Swanson MD is Attending Physician. kdr 07:55 Daryn Cueva LVN is Primary Nurse. em 08:00 Safety checks: Items removed: yes. Door open/sign placed on door: yes. Family/friend mh5 present: no. Sitter present: Yes. 08:01 Arm band placed on. em 08:03 Patient has correct armband on for positive identification. Valuables inventory done. em Locked in safe. See valuables checklist. 08:05 Initial lab(s) drawn, by me, sent to lab. em 08:09 Triage completed. hb 08:15 Safety checks: Items removed: yes. Door open/sign placed on door: yes. Family/friend mh5 present: no. Sitter present: Yes. 08:27 Warm blanket given. Diet tray ordered. GIVEN SOAKS. mh5 08:30 Safety checks: Items removed: yes. Door open/sign placed on door: yes. Family/friend mh5 present: no. Sitter present: Yes. 08:45 Safety checks: Items removed: yes. Door open/sign placed on door: yes. Family/friend mh5 present: no. Sitter present: Yes. 08:45 Diet: Patient given a diabetic meal tray. mh5 09:00 Safety checks: Items removed: yes. Door open/sign placed on door: yes. Family/friend mh5 present: no. Sitter present: Yes. 09:15 Safety checks: Items removed: yes. Door open/sign placed on door: yes. Family/friend mh5 present: no. Sitter present: Yes. 09:30 Safety checks: Items removed: yes. Door open/sign placed on door: yes. Family/friend mh5 present: no. Sitter present: Yes. Other: PATIENT SLEEPING . 09:45 Safety checks: Items removed: yes. Door open/sign placed on door: yes. Family/friend mh5 present: no. Sitter present: Yes. Other: PATIENT SLEEPING . 10:00 Safety checks: Items removed: yes. Door open/sign placed on door: yes. Family/friend mh5 present: no. Sitter present: Yes. Other: PATIENT SLEEPING . 10:15 Safety checks: Items removed: yes. Door open/sign placed on door: yes. Family/friend mh5 present: no. Sitter present: Yes. 10:30 Safety checks: Items removed: yes. Door open/sign placed on door: yes. Family/friend mh5 present: no. Sitter present: Yes. Other: PATIENT SLEEPING. 10:45 Safety checks: Items removed: yes. Door open/sign placed on door: yes. Family/friend mh5 present: no. Sitter present: Yes. Other: PATIENT SLEEPING. 11:00 Safety checks: Items removed: yes. Door open/sign placed on door: yes. Family/friend mh5 present: no. Sitter present: Yes. Other: PATIENT SLEEPING. 11:00 Safety checks: Items removed: yes. Door open/sign placed on door: yes. Family/friend mh5 present: no. Sitter present: Yes. 11:15 Safety checks: Items removed: yes. Door open/sign placed on door: yes. Family/friend mh5 present: no. Sitter present: Yes. 11:24 Diet: Patient given a diabetic meal tray. mh5 11:30 Safety checks: Items removed: yes. Door open/sign placed on door: yes. Family/friend mh5 present: no. Sitter present: Yes. Other: PATIENT EATING LUNCH. 11:45 Safety checks: Items removed: yes. Door open/sign placed on door: yes. Family/friend mh5 present: no. Sitter present: Yes. 11:47 initiated [facility] with [facility] ms 12:00 Safety checks: Items removed: yes. Door open/sign placed on door: yes. Family/friend mh5 present: no. Sitter present: Yes. 12:15 Safety checks: Items removed: yes. Door open/sign placed on door: yes. Family/friend mh5 present: no. Sitter present: Yes. 12:28 Safety checks: Items removed: yes. Door open/sign placed on door: yes. Family/friend mh5 present: no. Sitter present: Yes. 12:45 Safety checks: Items removed: yes. Door open/sign placed on door: yes. Family/friend jp3 present: no. Sitter present: Yes. 12:45 Safety checks: Items removed: yes. Door open/sign placed on door: yes. Family/friend mh5 present: no. Sitter present: Yes. 12:46 faxed PT clinical's to [facility], [facility], [facility], [facility], [facility], [facility], [facility], [facility], [facility], [facility], [facility]. 13:00 Safety checks: Items removed: yes. Door open/sign placed on door: yes. Family/friend mh5 present: no. Sitter present: Yes. 13:05 [facility] Called to do nurse to nurse. ms 13:13 [facility] Called to do Nurse to nurse at this time. ms 13:15 Safety checks: Items removed: yes. Door open/sign placed on door: yes. Family/friend mh5 present: no. Sitter present: Yes. 13:16 [facility] call to do nurse to nurse at this time. ms 13:23 doctor to doctor report with [facility]. ms 13:30 Safety checks: Items removed: yes. Door open/sign placed on door: yes. Family/friend mh5 present: no. Sitter present: Yes. 13:45 Safety checks: Items removed: yes. Door open/sign placed on door: yes. Family/friend mh5 present: no. Sitter present: Yes. 14:00 Safety checks: Items removed: yes. Door open/sign placed on door: yes. Family/friend mh5 present: no. Sitter present: Yes. 14:15 Safety checks: Items removed: yes. Door open/sign placed on door: yes. Family/friend mh5 present: no. Sitter present: Yes. Other: EMS HERE FOR TRANSFER. 14:19 No provider procedures requiring assistance completed. Patient did not have IV access em during this emergency room visit. Administered Medications: No medications were administered Outcome: 13:31 ER care complete, transfer ordered by . kdr 14:19 Transferred by ground EMS to other acute care facility: [facility]. em 14:19 Condition: good 14:19 Instructed on the need for transfer, Demonstrated understanding of instructions. 14:21 Patient left the ED. em Signatures: Benigno Goodson RN RN sg Rittger, Kevin, MD MD kdr Rivera, Mary mr Daryn Cueva, STATION HELPER STATION HELPER Reyna Caraballo ms, Heather, Reyna Prabhakar RN Naun Dasilva [id number]
== END 2018-12-18 14:21 ==
LOC: ER 07:43
DX: R45.851 Suicidal ideations (principal); F32.9 Major depressive disorder, single episode, unspecified; I10 Essential (primary) hypertension; E11.9 Type 2 diabetes mellitus without complications; F20.9 Schizophrenia, unspecified; F17.210 Nicotine dependence, cigarettes, uncomplicated
CPT/HCPCS: 36415; 80048; 80076; 80307; 80320; 80329; 81003; 85025; 85610; 85730; 99285